=== PATIENT | female | born 1985 | race Two or more races ===

== ENCOUNTER 2018-12-23 14:40 | Inpatient (IN) | payer MEDICAID ==
[~2018-12-23] VITALS: Ht 170.2 cm; Wt 113.9 kg
[2018-12-23] MEDS ORDERED: NACL 0.9% 3 ML SYG IV SCH (15:30)
[2018-12-23 16:15] VITALS: BP 148/88; PULSE 102; RESP 20
[2018-12-23 16:16] VITALS: Ht 170.2 cm; Wt 113.9 kg
[2018-12-23] MEDS ORDERED: METF500T24 PO ×2 (16:20→16:22)
[2018-12-23] MEDS ORDERED: LABE200T25 PO (16:22)
[2018-12-23] MEDS ORDERED: ASPI-817 PO (16:22)
[2018-12-23] MEDS ORDERED: LEVEM (16:24)
[2018-12-23] MEDS ORDERED: HEPA500021 IJ (16:26)
[2018-12-23] MEDS ORDERED: DEXTROSE 50% 50 ML SYRINGE IV PRN ×2 (18:00)
[2018-12-23] MEDS ORDERED: GLUCOSE GEL 15 GRAM TUBE BUCCAL PRN (18:00)
[2018-12-23] MEDS ORDERED: GLUCOSE GEL 15 GRAM TUBE PO PRN ×2 (18:00)
[2018-12-23] MEDS ORDERED: GLUCAGON 1 MG INJ IM PRN (18:00)
[2018-12-23] MEDS ORDERED: FLUCONAZOLE 150 MG TAB GTB ONE (18:30)
[2018-12-23] MEDS ORDERED: INSULIN ASPART [NOVOLOG] 3 ML PEN SC SCH (19:05)
[2018-12-23] MEDS ORDERED: ACCU-CHEK XX SCH ×2 (20:05)
[2018-12-23] MEDS: ACCU-CHEK XX SCH (20:28)
[2018-12-23] MEDS: LABETALOL 200 MG TAB PO SCH (20:51)
[2018-12-23] MEDS: CLOTRIMAZOLE 1% 45 GM VAG CR VAG SCH (21:00)
[2018-12-23] MEDS ORDERED: CLOTRIMAZOLE 1% 45 GM VAG CR VAG SCH (21:00)
[2018-12-24] MEDS: ACCU-CHEK XX SCH ×4 (08:15→16:39)
[2018-12-24] MEDS: ASPIRIN (EC) 81 MG TAB PO SCH (09:58)
[2018-12-24] MEDS: LABETALOL 200 MG TAB PO SCH ×2 (09:59→21:20)
[2018-12-24] MEDS: FERROUS SULFATE (EC) 325 MG TAB PO SCH (10:00)
[2018-12-24] MEDS: PRENATAL VITAMIN PO SCH (10:00)
[2018-12-24] MEDS: INSULIN ASPART [NOVOLOG] 3 ML PEN SC SCH ×3 (10:09→20:34)
[2018-12-24] MEDS: NPH, HUMAN INSULIN ISOPHANE 3ML VIAL SC SCH (10:33)
[2018-12-24] MEDS ORDERED: DOCUSATE SODIUM 100 MG CAP PO PRN (11:30)
[2018-12-24] MEDS ORDERED: ACCU-CHEK XX ONE ×2 (12:30→14:00)
[2018-12-24] MEDS ORDERED: INSULIN ASPART [NOVOLOG] 3 ML PEN SC ONE (12:30)
[2018-12-24] MEDS ORDERED: INSULIN ASPART [NOVOLOG] 3 ML PEN SC SCH (17:35)
--- NOTE | 2018-12-24 18:37 | HP ---
Date/Time of Note Date/Time of Note DATE: 12/24/18 TIME: 18:33 OB - History Hx of Present Free Text/Dictation 33-year-old female 1 para 0 at 18 weeks gestation admitted for sugar control Patient is also hypertensive and diabetic for over 2 years Last Menstrual Period: Aug 16, 2018 Estimated Due Date: Dec 21, 2018 : 1 Para: 0 Care: None Ultrasounds: No ultrasounds Obstetrical Complications: Other (-Chronic hypertension and diabetes) Medical Complications: Other (Hypertension and diabetes) Past Family/Social History * Past Medical, Surgical, Family and Obstetric Histories reviewed from chart. OB Admission Exam Vital Signs Vital Signs Vital Signs Date Temp Pulse Resp B/P (MAP) Pulse Ox O2 O2 Flow FiO2 Time Delivery Rate 12/23/18 98.0 102 20 148/88 Room Air 16:15 (108) Physical Exam HEENT: WNL Heart: Rhythm Normal Lungs: Clear, Equal Abdomen: WNL Extremities: Normal Reflexes: Normal Cervical Dilatation: None Last 72 hourBlood Glucose Bedside Glucose - 72 Hours Test 12/23/18 15:32 12/23/18 20:28 12/23/18 22:10 12/24/18 08:42 Bedside 245 231 199 220 Glucose mg/dL (70-220) mg/dL (70-220) mg/dL (70-220) mg/dL (70-220) H H Test 12/24/18 12:08 12/24/18 14:09 12/24/18 16:38 12/24/18 17:55 Bedside 244 163 182 177 Glucose mg/dL (70-220) mg/dL (70-220) mg/dL (70-220) mg/dL (70-220) H Last 72 hours Lab Results CBC & BMP 12/23/18 16:55 Liver Function Test 12/23/18 16:55 Alanine Aminotransferase (ALT/SGPT) 21 Albumin 4.2 Alkaline Phosphatase 60 Aspartate Amino Transf (AST/SGOT) 16 Direct Bilirubin 0.00 Total Protein 7.8 Hemoglobin A1C Test 12/23/18 16:55 Hemoglobin A1c 7.9 H OB Assessment/Plan Other Assessment: IUP at 17-18 weeks [id number] diabetes Hypertension Other plan: Patient was admitted for diabetic control SHASHANK RATLIFF MD Dec 24, 2018 18:37
--- NOTE | 2018-12-24 18:38 | PN ---
Date/Time of Note Date/Time of Note DATE: 12/24/18 TIME: 18:37 OB Subjective Subjective Subjective Has no complaint OB Objective Objective Objective General physical exam is otherwise unchanged Blood pressure still slightly elevated Sugars very elevated on the care of the perinatology OB Assessment/Plan Other Assessment: Uncontrolled diabetes for 17 to 18 weeks of gestation Other plan: Continue with hospitalization for diabetic control SHASHANK RATLIFF MD Dec 24, 2018 18:38
[2018-12-24] MEDS ORDERED: NPH, HUMAN INSULIN ISOPHANE 3ML VIAL SC SCH (21:00)
[2018-12-24] MEDS: CLOTRIMAZOLE 1% 45 GM VAG CR VAG SCH (21:21)
[2018-12-25] MEDS: ACCU-CHEK XX SCH ×3 (08:24→14:49)
[2018-12-25] MEDS: PRENATAL VITAMIN PO SCH (08:36)
[2018-12-25] MEDS: ASPIRIN (EC) 81 MG TAB PO SCH (08:36)
[2018-12-25] MEDS: FERROUS SULFATE (EC) 325 MG TAB PO SCH (08:37)
[2018-12-25] MEDS: LABETALOL 200 MG TAB PO SCH ×2 (08:37→21:46)
[2018-12-25] MEDS: NPH, HUMAN INSULIN ISOPHANE 3ML VIAL SC SCH (08:43)
[2018-12-25] MEDS: INSULIN ASPART [NOVOLOG] 3 ML PEN SC SCH ×5 (08:43→21:01)
[2018-12-25] MEDS ORDERED: FLUCONAZOLE 150 MG TAB GTB ONE (09:00)
--- NOTE | 2018-12-25 17:08 | PN ---
Date/Time of Note Date/Time of Note DATE: 12/25/18 TIME: 17:07 OB Subjective Subjective Subjective Currently has no major complaints OB Objective Objective Objective Vital signs are stable in general physical exam is unchanged Blood sugars appear lower comparing to admission Currently under care of perinatology for sugar control OB Assessment/Plan Other Assessment: Class B diabetic [id number] 618 or 17+ weeks Other plan: Continue to follow perinatology orders for sugar control Patient has been visited by perinatologist SHASHANK RATLIFF MD Dec 25, 2018 17:08
[2018-12-25] MEDS ORDERED: NPH, HUMAN INSULIN ISOPHANE 3ML VIAL SC SCH (21:00)
[2018-12-25] MEDS: CLOTRIMAZOLE 1% 45 GM VAG CR VAG SCH (21:46)
[2018-12-26] MEDS: ACCU-CHEK XX SCH ×3 (07:30→14:44)
[2018-12-26] MEDS ORDERED: INSULIN ASPART [NOVOLOG] 3 ML PEN SC SCH (07:35)
[2018-12-26] MEDS: NPH, HUMAN INSULIN ISOPHANE 3ML VIAL SC SCH ×2 (08:29→21:22)
[2018-12-26] MEDS: FERROUS SULFATE (EC) 325 MG TAB PO SCH (08:30)
[2018-12-26] MEDS: PRENATAL VITAMIN PO SCH (08:30)
[2018-12-26] MEDS: ASPIRIN (EC) 81 MG TAB PO SCH (08:30)
[2018-12-26] MEDS: LABETALOL 200 MG TAB PO SCH ×2 (08:32→21:16)
--- NOTE | 2018-12-26 11:18 | PN ---
Date/Time of Note Date/Time of Note DATE: 12/26/18 TIME: 11:17 OB Subjective Subjective Subjective Currently has no medical complaints OB Objective Objective Objective General physical exam as well as vital signs are stable Blood sugars appears to be more stable in mid 100s OB Assessment/Plan Other Assessment: Class B diabetic has 18 weeks Other plan: Continue to adjust sugar with perinatologist Anticipate discharge next day SHASHANK RATLIFF MD Dec 26, 2018 11:18
[2018-12-26] MEDS: INSULIN ASPART [NOVOLOG] 3 ML PEN SC SCH ×3 (11:36→18:02)
[2018-12-26] MEDS: CLOTRIMAZOLE 1% 45 GM VAG CR VAG SCH (21:17)
[2018-12-27] MEDS: INSULIN ASPART [NOVOLOG] 3 ML PEN SC SCH ×6 (07:30→20:39)
[2018-12-27] MEDS: ACCU-CHEK XX SCH ×4 (07:47→20:32)
[2018-12-27] MEDS: PRENATAL VITAMIN PO SCH (08:17)
[2018-12-27] MEDS: ASPIRIN (EC) 81 MG TAB PO SCH (08:18)
[2018-12-27] MEDS: LABETALOL 200 MG TAB PO SCH ×2 (08:18→20:56)
[2018-12-27] MEDS: FERROUS SULFATE (EC) 325 MG TAB PO SCH (08:18)
[2018-12-27] MEDS: NPH, HUMAN INSULIN ISOPHANE 3ML VIAL SC SCH ×2 (08:21→21:01)
--- NOTE | 2018-12-27 12:16 | PN ---
Date/Time of Note Date/Time of Note DATE: 12/27/18 TIME: 12:14 OB Subjective Subjective Subjective Currently has no major complaints OB Objective Objective Objective Blood sugars are still elevated General physical exam is unchanged Patient under care of perinatologist for sugar control OB Assessment/Plan Other Assessment: Class B diabetes at 18 weeks Other plan: Continue to monitor blood sugars and adjust insulin dose SHASHANK RATLIFF MD Dec 27, 2018 12:16
[2018-12-27] MEDS: CLOTRIMAZOLE 1% 45 GM VAG CR VAG SCH (20:56)
[2018-12-28] MEDS: ACCU-CHEK XX SCH ×4 (07:30→20:44)
[2018-12-28] MEDS: NPH, HUMAN INSULIN ISOPHANE 3ML VIAL SC SCH (07:35)
[2018-12-28] MEDS: INSULIN ASPART [NOVOLOG] 3 ML PEN SC SCH ×5 (08:42→20:44)
[2018-12-28] MEDS: ASPIRIN (EC) 81 MG TAB PO SCH (09:03)
[2018-12-28] MEDS: FERROUS SULFATE (EC) 325 MG TAB PO SCH (09:03)
[2018-12-28] MEDS: LABETALOL 200 MG TAB PO SCH ×2 (09:03→21:07)
[2018-12-28] MEDS: PRENATAL VITAMIN PO SCH (09:04)
--- NOTE | 2018-12-28 14:31 | DS ---
Date/Time of Note Date/Time of Note DATE: 12/28/18 TIME: 14:30 Obstetrical Discharge Record Final Diagnosis Final Diagnosis: not delivered Other Final Diagnosis Class B diabetes [id number] Complications Gestational Diabetes (Class B diabetes) Condition on Discharge Physical Assessment Voiding: Yes Bowel Movement: Yes Breast: Soft, non-tender, Filling Fundus: Other () Abdomen and Incision: Abdomen is soft fundal height is about 2.-3 fingerbreadth below bellybutton heart tones positive Calf Tenderness: No Patient Condition: Good (Patient appears to have reasonable sugar control impaired perinatologists will DC patient home with follow-up in perinatology clinic within 1 week) SHASHANK RATLIFF MD Dec 28, 2018 14:31
--- NOTE | 2018-12-28 14:33 | PD.PPDC ---
[employer] Discharge Instruction Provider Information Physician Information 33-year-old female with 2-year history of diabetes admitted for sugar control at 18 weeks Diagnosis [id number] Final Diagnosis: Abhay1p Class B diabetes Condition [id number] Patient Condition: [id number] Good (Patient appears to have reasonable sugar control impaired perinatologists will DC patient home with follow-up in perinatology clinic within 1 week) Diet [id number] Diet: [id number] Special Diet Special Diet: 1800-calorie ADA Activity/Restrictions [id number] Activity: [id number] Normal Activity May Shower Follow-up Follow-up with Physician: 3, Day/Days (In clinic) SHASHANK RATLIFF MD Dec 28, 2018 14:33
[2018-12-28] MEDS ORDERED: LABE200T25 PO (14:35)
[2018-12-28] MEDS ORDERED: ASPI-817 PO (14:35)
--- NOTE | 2018-12-28 14:47 | DS ---
Date/Time of Note Date/Time of Note DATE: 12/28/18 TIME: 14:46 Discharge Summary Admission/Discharge Info Admit Date/Time Dec 23, 2018 at 14:40 Discharge Date/Time April 29, 2019 Discharge Diagnosis Class B diabetes Patient Condition: Good Consults Perinatology Hx of Present Illness 33-year-old female the 18 weeks gestation admitted for blood pressure control and sugar control Hospital Course Uncomplicated Home Meds Active Scripts Aspirin* (Aspirin* EC) 81 Mg Tablet.dr, 81 MG PO DAILY, #120 TAB 1 Refill Prov:SHASHANK RATLIFF MD 12/28/18 Labetalol Hcl* (Labetalol Hcl*) 200 Mg Tablet, 200 MG PO BID, #120 TAB 1 Refill Prov:SHASHANK RATLIFF MD 12/28/18 Reported Medications Insulin Detemir (Levemir) 100 Unit/1 Ml Vial 12/23/18 Discontinued Reported Medications Heparin Sodium,Porcine/Pf (HEPARIN SOD 5,000 UNIT/ 0.5 ML) 5,000 Unit/0.5 Ml Vial, 5000 UNIT IJ DAILY, VIAL 12/23/18 Metformin Hcl* (Metformin Hcl*) 500 Mg Tablet, 500 MG PO WITH MEALS, #90 TAB 12/23/18 Metformin Hcl* (Metformin Hcl*) 500 Mg Tablet, 500 MG PO WITH BREAKFAST, #30 TAB 12/23/18 Follow-up Plan 3 days in clinic following Friday for perinatology follow-up Primary Care Provider Care Physician No Primary Time spent on discharge: > 30 minutes Pending Labs Laboratory Tests Test 12/27/18 14:59 12/27/18 17:17 12/27/18 20:32 12/28/18 08:38 Bedside 128 141 135 175 Glucose mg/dL (70-220) mg/dL (70-220) mg/dL (70-220) mg/dL (70-220) Test 12/28/18 11:03 Bedside 119 Glucose mg/dL (70-220) SHASHANK RATLIFF MD Dec 28, 2018 14:47
[2018-12-28] MEDS ORDERED: NPH, HUMAN INSULIN ISOPHANE 3ML VIAL SC SCH (21:00)
[2018-12-28] MEDS: CLOTRIMAZOLE 1% 45 GM VAG CR VAG SCH (21:07)
[2018-12-29] MEDS: ACCU-CHEK XX SCH ×2 (08:05→11:30)
[2018-12-29] MEDS: FERROUS SULFATE (EC) 325 MG TAB PO SCH (09:05)
[2018-12-29] MEDS: ASPIRIN (EC) 81 MG TAB PO SCH (09:05)
[2018-12-29] MEDS: PRENATAL VITAMIN PO SCH (09:06)
[2018-12-29] MEDS: LABETALOL 200 MG TAB PO SCH (09:06)
[2018-12-29] MEDS: NPH, HUMAN INSULIN ISOPHANE 3ML VIAL SC SCH (09:11)
[2018-12-29] MEDS: INSULIN ASPART [NOVOLOG] 3 ML PEN SC SCH ×2 (09:12→11:40)
== END 2018-12-29 14:31 | disposition home or self-care (01) | DRG 832 ==
LOC: PP1 14:40
PROVIDERS: ADMIT Obstetrics & Gynecology; ATTEND Obstetrics & Gynecology
DX: O24.112 Pre-existing type 2 diabetes mellitus, in pregnancy, second trimester (principal); O10.912 Unspecified pre-existing hypertension complicating pregnancy, second trimester; E11.9 Type 2 diabetes mellitus without complications; Z3A.18 18 weeks gestation of pregnancy
CPT/HCPCS: 76805; 80053; 81001; 81003; 82575; 82962; 83036; 84156; 85025; 87086; J1815

== ENCOUNTER 2019-03-08 14:05 | Outpatient (CLI) | payer MEDICAID ==
[~2019-03-08] VITALS: Ht 167.6 cm; Wt 122.0 kg
[~2019-03-08 14:05] MED LIST: ASPI-817 PO; LABE200T25 PO; LEVEM
[2019-03-08 14:15] VITALS: Ht 167.6 cm; Wt 122.0 kg
[2019-03-08 14:16] VITALS: BP 125/82; PULSE 95; RESP 20
--- NOTE | 2019-03-08 15:26 | PN ---
Triage Information Date/Time March 08, 2019 Reason for visit: DFM Weeks of Gestation 29 weeks and 1 day /Para 1 para 0 Diabetes: pre-gestational (Class B diabetes) Diabetes management: diet controlled, insulin controlled Hypertention: essential (On labetalol) Objective Vital Signs Date Temp Pulse Resp B/P (MAP) Pulse Ox O2 O2 Flow FiO2 Time Delivery Rate 03/08/19 98.6 95 20 125/82 95 Room Air 14:16 (96) Heart Rate: 140's Heart Rate Comments Reactive Contractions: None Results/Medications Imaging Results Cervix is closed and measures 3.4 cm in length. Biophysical profile = 04/08. RICHIE = 13.1 cm. Disposition: Discharge Assessment/Plan Home with follow-up in clinic mornings SHASHANK RATLIFF MD Mar 08, 2019 15:26
--- NOTE | 2019-03-08 15:50 | TRIAGE ---
OB Triage Datetime Report Generated by CPN: 03/08/2019 15:49 Datetime: 03/08/2019 15:29 Stage of : OB Triage Maternal Assessment Level of Consciousness: Keenly Alert, Responsive DTR's/Clonus: DTRs 1+ Headache: Denies Nausea/Vomiting: Denies RUQ Epigastric Pain: Denies Labor Evaluation Frequency: NONE Monitor Mode: External Resting Tone [place]: Relaxed Heart Rate FHR Baseline Rate: 140 Monitor Mode: External US Variability: Moderate 6-25 bpm Accelerations: 15X15 Decelerations: None Category: Category I Pain Assessment Pain Scale: 0 Pain Presence: None/Denies Pain Type: N/A Pain Goal: 3 Vaginal Exam Membrane Status: Intact Datetime: 03/08/2019 14:42 Maternal Assessment Level of Consciousness: Keenly Alert, Responsive DTR's/Clonus: DTRs 1+ Headache: Denies Blurred Vision: No Nausea/Vomiting: Denies RUQ Epigastric Pain: Denies Facial Edema: None Monitor Mode: External Resting Tone [place]: Relaxed Heart Rate FHR Baseline Rate: 140 Monitor Mode: External US Variability: Moderate 6-25 bpm Accelerations: 15X15 Decelerations: None Category: Category I Pain Assessment Pain Scale: 0 Pain Presence: None/Denies Pain Type: N/A Pain Goal: 3 Vaginal Exam Membrane Status: Intact Datetime: 03/08/2019 14:41 EGA: 29.1 Datetime: 03/08/2019 14:34 EGA: 29.1 Datetime: 03/08/2019 14:32 EGA: 29.1 Datetime: 03/08/2019 14:27 Stage of : OB Triage Datetime: 03/08/2019 14:21 Time of Arrival: 03/08/2019 13:55 EGA: 29.1 Arrived From: Home Chief Complaint: Decreased movement since yesterday Movement: Decreased Contractions: Denies/Absent Rupture of Membranes: Denies Vaginal Bleeding: None Vaginal Discharge: Denies Recent Sexual Intercouse: Denies Abdominal Trauma: Not Applicable Patient Complaints: None Additional Patient Complaints: hx of diabetis, currently on insulin and BP meds. Time Provider Notified: 03/08/2019 14:28 Provider Notified: Dr. Callahan Initial Plan: NST, BPP, Biophysical, cervical length Datetime: 12/29/2018 14:17 Stage of : Antepartum Datetime: 12/29/2018 14:13 Time of Arrival: 03/08/2019 13:55 EGA: 29.1 Arrived By: Ambulatory Arrived From: Home Chief Complaint: devreased movement since yesterday Movement: Decreased Contractions: Denies/Absent Rupture of Membranes: Denies Vaginal Bleeding: None Vaginal Discharge: Denies Recent Sexual Intercouse: Denies Abdominal Trauma: Not Applicable Patient Complaints: None Datetime: 12/29/2018 11:53 Stage of : Antepartum Temperature Route: Oral Pain Assessment Pain Scale: 0 Pain Presence: None/Denies Pain Type: N/A Datetime: 12/29/2018 11:30 Stage of : Antepartum Bedside Blood Glucose: 142 (Annotations: 2 hour post prandial) Datetime: 12/29/2018 11:00 Stage of : Antepartum Datetime: 12/29/2018 10:50 Stage of : Antepartum Datetime: 12/29/2018 09:15 Stage of : Antepartum Datetime: 12/29/2018 08:19 Stage of : Antepartum Datetime: 12/29/2018 08:01 Stage of : Antepartum Bedside Blood Glucose: 134 (Annotations: FBS) Datetime: 12/29/2018 07:39 Assessment Type: Ongoing Assessment DTR's/Clonus: DTRs 2+; No Clonus Headache: Denies Blurred Vision: No Respiratory Effort: Unlabored; Regular Rhythm; Equal Expansion Breath Sounds, Left: Clear and Equal Breath Sounds, Right: Clear and Equal Nausea/Vomiting: Denies RUQ Epigastric Pain: Denies Lower Extremities Edema: None Degree: 1+ Upper Extremities Edema: None Facial Edema: None Fall Risk Assessment History of Falling: (0) No Secondary Diagnosis: (0) No Ambulatory Aid: (0) Bedrest/Nurse Assist IV Therapy: (0) No Gait: (0) Normal/Bedrest/Immobile Mental Status: (0) Oriented to Own Ability Fall Score: 0 Fall Risk Score Definition: No Risk: No action required Datetime: 12/29/2018 07:34 Heart Rate FHR Baseline Rate: 145 Monitor Mode: Doppler Pain Assessment Pain Scale: 0 Pain Presence: None/Denies Pain Type: N/A Datetime: 12/29/2018 07:33 Stage of : Antepartum Temperature Route: Oral Datetime: 12/29/2018 06:50 Stage of : Antepartum Pain Presence: None/Denies Pain Type: N/A Pain Assessment Comments: PT SLEEPING BUT EASILY AROUSED. Datetime: 12/29/2018 05:37 Stage of : Antepartum Temperature Route: Oral Contraction Comments: PT DENIES CRAMPING Comments: PT STATES SHE FEELS A LITTLE MOVEMENT Pain Presence: None/Denies Pain Type: N/A Vaginal Exam Membrane Status: Intact Vaginal Bleeding: None Datetime: 12/29/2018 03:00 Stage of : Antepartum Pain Presence: None/Denies Pain Type: N/A Pain Assessment Comments: PT SLEEPING WITH EVEN UNLABORED BREATHING Datetime: 12/29/2018 01:15 Stage of : Antepartum Pain Presence: None/Denies Pain Type: N/A Pain Assessment Comments: PT SLEEPING WITH EVEN UNLABORED BREATHING. Datetime: 12/29/2018 00:23 Stage of : Antepartum Temperature Route: Oral Pain Presence: None/Denies Pain Type: N/A Pain Assessment Comments: PT SLEEPING BUT EASILY AROUSED Datetime: 12/28/2018 21:15 Stage of : Antepartum Datetime: 12/28/2018 21:10 Stage of : Antepartum Datetime: 12/28/2018 21:07 Stage of : Antepartum Datetime: 12/28/2018 21:04 Stage of : Antepartum Datetime: 12/28/2018 20:44 Stage of : Antepartum Bedside Blood Glucose: 104 Heart Rate FHR Baseline Rate: 144 Monitor Mode: Doppler Datetime: 12/28/2018 20:00 Stage of : Antepartum Datetime: 12/28/2018 19:55 Stage of : Antepartum Datetime: 12/28/2018 19:50 Stage of : Antepartum Datetime: 12/28/2018 19:45 Stage of : Antepartum Datetime: 12/28/2018 19:40 Stage of : Antepartum Datetime: 12/28/2018 19:35 Stage of : Antepartum Datetime: 12/28/2018 19:30 Stage of : Antepartum Datetime: 12/28/2018 19:19 Stage of : Antepartum Temperature Route: Oral Contraction Comments: PT DENIES CRAMPING Comments: PT DOES NOT FEEL THE BABY MOVE AT THIS TIME. Datetime: 12/28/2018 18:00 Stage of : [facility] CALLED TO CHECK ELIGIBILITY OF RESTRICTED MEDICAL FOR INSULIN S,FAXED PRESCRIPTIONS Datetime: 12/28/2018 16:17 Stage of : Antepartum Temperature Route: Oral Pain Assessment Pain Scale: 0 Pain Presence: None/Denies Pain Goal: 0 Datetime: 12/28/2018 14:39 Monitor Mode: Doppler (Annotations: 140 BPM) Datetime: 12/28/2018 13:02 Stage of : Antepartum Temperature Route: Oral Pain Assessment Pain Scale: 0 Pain Presence: None/Denies Pain Goal: 0 Datetime: 12/28/2018 07:44 Monitor Mode: 140 STRONG AND REGULAR Datetime: 12/28/2018 07:43 Temperature Route: Oral Pain Assessment Pain Scale: 0 Pain Presence: None/Denies Pain Goal: 0 Datetime: 12/28/2018 07:39 Assessment Type: Ongoing Assessment Maternal Assessment Level of Consciousness: Fully Conscious DTR's/Clonus: DTRs 2+; No Clonus Headache: Denies Blurred Vision: No Respiratory Effort: Unlabored; Regular Rhythm; Equal Expansion Breath Sounds, Left: Clear and Equal Breath Sounds, Right: Clear and Equal Nausea/Vomiting: Denies RUQ Epigastric Pain: Denies Lower Extremities Edema: None Degree: 1+ Upper Extremities Edema: None Facial Edema: None Fall Risk Assessment History of Falling: (0) No Secondary Diagnosis: (0) No Ambulatory Aid: (0) Bedrest/Nurse Assist IV Therapy: (0) No Gait: (0) Normal/Bedrest/Immobile Mental Status: (0) Oriented to Own Ability Fall Score: 0 Fall Risk Score Definition: No Risk: No action required Datetime: 12/28/2018 06:20 Stage of : Antepartum Datetime: 12/28/2018 04:38 Stage of : Antepartum Temperature Route: Oral Pain Presence: None/Denies Pain Type: N/A Pain Assessment Comments: PT DENIES ANY NEEDS AT THIS TIME Datetime: 12/28/2018 02:00 Stage of : Antepartum Pain Presence: None/Denies Pain Type: N/A Pain Assessment Comments: PT SLEEPING WITH EVEN UNLABORED BREATHING Datetime: 12/27/2018 23:57 Stage of : Antepartum Contraction Comments: PT DENIES CRAMPING Comments: PT STATES SHE FEELS OCCASSIONAL FM Pain Presence: None/Denies Pain Type: N/A Datetime: 12/27/2018 22:30 Stage of : Antepartum Datetime: 12/27/2018 22:00 Stage of : Antepartum Datetime: 12/27/2018 21:01 Stage of : Antepartum Datetime: 12/27/2018 20:56 Stage of : Antepartum Heart Rate FHR Baseline Rate: 144 Monitor Mode: Doppler Datetime: 12/27/2018 20:55 Stage of : Antepartum Datetime: 12/27/2018 20:39 Stage of : Antepartum Datetime: 12/27/2018 20:32 Stage of : Antepartum Bedside Blood Glucose: 135 Datetime: 12/27/2018 19:30 Stage of : Antepartum Datetime: 12/27/2018 19:10 Stage of : Antepartum Temperature Route: Oral Contraction Comments: PT DENIES CRAMPIG Comments: PT STATES OCCASSIONIAL FM Pain Presence: None/Denies Pain Type: N/A Vaginal Exam Membrane Status: Intact Vaginal Bleeding: None Datetime: 12/27/2018 18:12 Maternal Assessment Level of Consciousness: Fully Conscious Headache: Denies Blurred Vision: No Respiratory Effort: Unlabored Nausea/Vomiting: Denies RUQ Epigastric Pain: Denies Pain Presence: None/Denies Datetime: 12/27/2018 17:05 Stage of : Antepartum Maternal Assessment Level of Consciousness: Fully Conscious Headache: Denies Blurred Vision: No Respiratory Effort: Unlabored Nausea/Vomiting: Denies RUQ Epigastric Pain: Denies Temperature Route: Oral Pain Presence: None/Denies Datetime: 12/27/2018 15:06 Monitor Mode: External US Comments: viable fht's 150's ega 18.4 today Datetime: 12/27/2018 13:41 Respiratory Effort: Unlabored Resting Tone [place]: Relaxed Pain Presence: None/Denies Datetime: 12/27/2018 13:10 Stage of : Antepartum Datetime: 12/27/2018 11:54 Stage of : Antepartum Maternal Assessment Level of Consciousness: Fully Conscious Headache: Denies Blurred Vision: No Respiratory Effort: Unlabored Nausea/Vomiting: Denies RUQ Epigastric Pain: Denies Pain Presence: None/Denies Datetime: 12/27/2018 10:19 Maternal Assessment Level of Consciousness: Fully Conscious Headache: Denies Blurred Vision: No Respiratory Effort: Unlabored Nausea/Vomiting: Denies Bedside Blood Glucose: 196 Pain Presence: None/Denies Datetime: 12/27/2018 10:00 Stage of : Antepartum Maternal Assessment Level of Consciousness: Fully Conscious Headache: Denies Nausea/Vomiting: Denies Pain Presence: None/Denies Datetime: 12/27/2018 09:00 Maternal Assessment Level of Consciousness: Fully Conscious Headache: Denies Blurred Vision: No Respiratory Effort: Unlabored Nausea/Vomiting: Denies Pain Presence: None/Denies Datetime: 12/27/2018 07:35 Assessment Type: Ongoing Assessment Maternal Assessment Level of Consciousness: Fully Conscious DTR's/Clonus: DTRs 2+; No Clonus Headache: Denies Blurred Vision: No Respiratory Effort: Unlabored; Regular Rhythm; Equal Expansion Breath Sounds, Left: Clear and Equal Breath Sounds, Right: Clear and Equal Nausea/Vomiting: Denies RUQ Epigastric Pain: Denies Lower Extremities Edema: None Degree: None Upper Extremities Edema: None Degree: None Facial Edema: None Fall Risk Assessment History of Falling: (0) No Secondary Diagnosis: (0) No Ambulatory Aid: (0) Bedrest/Nurse Assist IV Therapy: (0) No Gait: (0) Normal/Bedrest/Immobile Mental Status: (0) Oriented to Own Ability Fall Score: 0 Fall Risk Score Definition: No Risk: No action required Datetime: 12/27/2018 07:21 Stage of : Antepartum Maternal Assessment Level of Consciousness: Fully Conscious Headache: Denies Nausea/Vomiting: Denies RUQ Epigastric Pain: Denies Temperature Route: Oral Resting Tone [place]: Relaxed Contraction Comments: pt. denies any uc's or cramping Comments: ega 18.4 today Pain Assessment Pain Scale: 0 Pain Presence: None/Denies Vaginal Bleeding: None Datetime: 12/27/2018 07:05 Stage of : Antepartum Maternal Assessment Level of Consciousness: Fully Conscious Headache: Denies Blurred Vision: No Respiratory Effort: Unlabored Nausea/Vomiting: Denies Pain Presence: None/Denies Datetime: 12/26/2018 21:30 Heart Rate FHR Baseline Rate: 155 Monitor Mode: Doppler Datetime: 12/26/2018 21:14 Assessment Type: Ongoing Assessment Maternal Assessment Level of Consciousness: Fully Conscious Headache: Denies Blurred Vision: No Respiratory Effort: Unlabored; Regular Rhythm; Equal Expansion Nausea/Vomiting: Denies RUQ Epigastric Pain: Denies Lower Extremities Edema: None Degree: None Upper Extremities Edema: None Degree: None Facial Edema: None Fall Risk Assessment History of Falling: (0) No Secondary Diagnosis: (0) No Ambulatory Aid: (0) Bedrest/Nurse Assist IV Therapy: (0) No Gait: (0) Normal/Bedrest/Immobile Mental Status: (0) Oriented to Own Ability Fall Score: 0 Fall Risk Score Definition: No Risk: No action required Pain Presence: None/Denies Datetime: 12/26/2018 18:05 Maternal Assessment Level of Consciousness: Fully Conscious Headache: Denies Blurred Vision: No Respiratory Effort: Unlabored Nausea/Vomiting: Denies RUQ Epigastric Pain: Denies Pain Presence: None/Denies Datetime: 12/26/2018 17:37 Bedside Blood Glucose: 113 Pain Presence: None/Denies Datetime: 12/26/2018 15:32 Stage of : Antepartum Temperature Route: Oral Datetime: 12/26/2018 15:10 Stage of : Antepartum Maternal Assessment Level of Consciousness: Fully Conscious Headache: Denies Nausea/Vomiting: Denies RUQ Epigastric Pain: Denies Pain Presence: None/Denies Vaginal Bleeding: None Datetime: 12/26/2018 14:36 Bedside Blood Glucose: 123 Datetime: 12/26/2018 14:19 Stage of : Antepartum Maternal Assessment Level of Consciousness: Fully Conscious Headache: Denies Nausea/Vomiting: Denies RUQ Epigastric Pain: Denies Pain Presence: None/Denies Vaginal Bleeding: None Datetime: 12/26/2018 13:16 Stage of : Antepartum Maternal Assessment Level of Consciousness: Fully Conscious Headache: Denies Nausea/Vomiting: Denies RUQ Epigastric Pain: Denies Pain Presence: None/Denies Vaginal Bleeding: None Datetime: 12/26/2018 11:59 Stage of : Antepartum Comments: viable fht's 150's Datetime: 12/26/2018 11:35 Maternal Assessment Level of Consciousness: Fully Conscious Headache: Denies Blurred Vision: No Respiratory Effort: Unlabored Nausea/Vomiting: Denies RUQ Epigastric Pain: Denies Bedside Blood Glucose: 161 Pain Presence: None/Denies Datetime: 12/26/2018 09:20 Stage of : Antepartum Maternal Assessment Level of Consciousness: Fully Conscious Headache: Denies Blurred Vision: No Respiratory Effort: Unlabored Nausea/Vomiting: Denies RUQ Epigastric Pain: Denies Pain Presence: None/Denies Datetime: 12/26/2018 08:32 Pain Presence: None/Denies Datetime: 12/26/2018 08:01 Stage of : Antepartum Maternal Assessment Level of Consciousness: Fully Conscious Headache: Denies Blurred Vision: No Respiratory Effort: Unlabored Nausea/Vomiting: Denies RUQ Epigastric Pain: Denies Temperature Route: Oral Bedside Blood Glucose: 167 Pain Presence: None/Denies Datetime: 12/26/2018 07:04 Maternal Assessment Level of Consciousness: Fully Conscious Headache: Denies Blurred Vision: No Respiratory Effort: Unlabored Nausea/Vomiting: Denies RUQ Epigastric Pain: Denies Comments: ega 18.4 Pain Presence: None/Denies Datetime: 12/25/2018 20:25 Heart Rate FHR Baseline Rate: 150 Monitor Mode: Doppler Datetime: 12/25/2018 20:20 Assessment Type: Ongoing Assessment Maternal Assessment Level of Consciousness: Fully Conscious Maternal Assessment Level of Consciousness: Fully Conscious Headache: Denies Headache: Denies Blurred Vision: No Blurred Vision: No Respiratory Effort: Unlabored; Regular Rhythm; Equal Expansion Nausea/Vomiting: Denies Nausea/Vomiting: Denies RUQ Epigastric Pain: Denies RUQ Epigastric Pain: Denies Lower Extremities Edema: None Degree: None Upper Extremities Edema: None Degree: None Facial Edema: None Fall Risk Assessment History of Falling: (0) No Secondary Diagnosis: (0) No Ambulatory Aid: (0) Bedrest/Nurse Assist IV Therapy: (0) No Gait: (0) Normal/Bedrest/Immobile Mental Status: (0) Oriented to Own Ability Fall Score: 0 Fall Risk Score Definition: No Risk: No action required Pain Presence: None/Denies Vaginal Exam Membrane Status: Intact Datetime: 12/25/2018 18:10 Bedside Blood Glucose: 114 Datetime: 12/25/2018 12:30 Bedside Blood Glucose: 185 Datetime: 12/25/2018 11:17 Pain Assessment Pain Scale: 0 Pain Presence: None/Denies Pain Type: N/A Datetime: 12/25/2018 11:05 Bedside Blood Glucose: 238 Datetime: 12/25/2018 08:50 Contraction Comments: DENIES FEELING ANY UCS Comments: fht's 152-158 via doppler Datetime: 12/25/2018 08:24 Bedside Blood Glucose: 201 Datetime: 12/25/2018 07:30 Assessment Type: Ongoing Assessment Maternal Assessment Level of Consciousness: Fully Conscious DTR's/Clonus: DTRs 2+; No Clonus Headache: Denies Blurred Vision: No Respiratory Effort: Unlabored; Regular Rhythm; Equal Expansion Breath Sounds, Left: Clear and Equal Breath Sounds, Right: Clear and Equal Nausea/Vomiting: Denies RUQ Epigastric Pain: Denies Lower Extremities Edema: None Degree: None Upper Extremities Edema: None Degree: None Facial Edema: None Fall Risk Assessment History of Falling: (0) No Secondary Diagnosis: (0) No Ambulatory Aid: (0) Bedrest/Nurse Assist IV Therapy: (0) No Gait: (0) Normal/Bedrest/Immobile Mental Status: (0) Oriented to Own Ability Fall Score: 0 Fall Risk Score Definition: No Risk: No action required Datetime: 12/25/2018 07:26 Pain Assessment Pain Scale: 0 Pain Presence: None/Denies Pain Type: N/A Datetime: 12/25/2018 06:10 Stage of : Antepartum Contraction Comments: PT DENIES CRAMPING Comments: PT STATES + FM Pain Presence: None/Denies Pain Type: N/A Vaginal Exam Membrane Status: Intact Vaginal Bleeding: None Datetime: 12/25/2018 04:45 Stage of : Antepartum Pain Presence: None/Denies Pain Type: N/A Pain Assessment Comments: PT SLEEPING WITH EVEN UNLABORED BREATHING. Datetime: 12/25/2018 03:40 Stage of : Antepartum Temperature Route: Oral Contraction Comments: PT DENIES CRAMPING. Comments: PT STATES +FM Pain Presence: None/Denies Pain Type: N/A Datetime: 12/24/2018 23:39 Stage of : Antepartum Temperature Route: Oral Contraction Comments: PT DENIES CRAMPING Comments: PT STATES + FM Pain Presence: None/Denies Pain Type: N/A Pain Assessment Comments: PT GOING TO SLEEP NOW. Datetime: 12/24/2018 23:05 Stage of : Antepartum Datetime: 12/24/2018 21:30 Stage of : Antepartum Datetime: 12/24/2018 21:24 Stage of : Antepartum Bedside Blood Glucose: 125 Datetime: 12/24/2018 21:21 Stage of : Antepartum Datetime: 12/24/2018 21:20 Stage of : Antepartum Datetime: 12/24/2018 21:19 Stage of : Antepartum Datetime: 12/24/2018 21:01 Stage of : Antepartum Bedside Blood Glucose: 151 (Annotations: 2 HR PP) Datetime: 12/24/2018 20:34 Stage of : Antepartum Datetime: 12/24/2018 20:17 Stage of : Antepartum Assessment Type: Ongoing Assessment Maternal Assessment Level of Consciousness: Fully Conscious DTR's/Clonus: DTRs 2+; No Clonus Headache: Denies Blurred Vision: No Respiratory Effort: Unlabored; Regular Rhythm; Equal Expansion Breath Sounds, Left: Clear and Equal Breath Sounds, Right: Clear and Equal Nausea/Vomiting: Denies RUQ Epigastric Pain: Denies Lower Extremities Edema: None Degree: None Upper Extremities Edema: None Degree: None Facial Edema: None Temperature Route: Oral Fall Risk Assessment History of Falling: (0) No Secondary Diagnosis: (0) No Ambulatory Aid: (0) Bedrest/Nurse Assist IV Therapy: (0) No Gait: (0) Normal/Bedrest/Immobile Mental Status: (0) Oriented to Own Ability Fall Score: 0 Fall Risk Score Definition: No Risk: No action required Contraction Comments: PT DENIES CRAMPING Heart Rate FHR Baseline Rate: 152 Monitor Mode: Doppler Pain Presence: None/Denies Pain Type: N/A Vaginal Exam Membrane Status: Intact Vaginal Bleeding: None Datetime: 12/24/2018 17:58 Bedside Blood Glucose: 177 Datetime: 12/24/2018 16:46 Bedside Blood Glucose: 182 Datetime: 12/24/2018 15:18 Heart Rate FHR Baseline Rate: 150 Comments: doppler Datetime: 12/24/2018 15:05 Pain Presence: None/Denies Datetime: 12/24/2018 14:08 Bedside Blood Glucose: 163 Datetime: 12/24/2018 12:09 Bedside Blood Glucose: 244 Datetime: 12/24/2018 08:42 Bedside Blood Glucose: 220 Datetime: 12/24/2018 07:30 Assessment Type: Ongoing Assessment Maternal Assessment Level of Consciousness: Fully Conscious DTR's/Clonus: DTRs 2+; No Clonus Headache: Denies Blurred Vision: No Respiratory Effort: Unlabored; Regular Rhythm; Equal Expansion Breath Sounds, Left: Clear and Equal Breath Sounds, Right: Clear and Equal Nausea/Vomiting: Denies RUQ Epigastric Pain: Denies Facial Edema: None Fall Risk Assessment History of Falling: (0) No Secondary Diagnosis: (0) No Ambulatory Aid: (0) Bedrest/Nurse Assist IV Therapy: (0) No Gait: (0) Normal/Bedrest/Immobile Mental Status: (0) Oriented to Own Ability Fall Score: 0 Fall Risk Score Definition: No Risk: No action required Datetime: 12/24/2018 07:29 Maternal Assessment Level of Consciousness: Fully Conscious DTR's/Clonus: DTRs 2+ Headache: Denies Blurred Vision: No Nausea/Vomiting: Denies RUQ Epigastric Pain: Denies Facial Edema: None Datetime: 12/24/2018 06:30 Stage of : Antepartum Datetime: 12/24/2018 04:00 Stage of : Antepartum Datetime: 12/24/2018 02:35 Stage of : Antepartum Datetime: 12/24/2018 00:30 Stage of : Antepartum Datetime: 12/23/2018 22:10 Bedside Blood Glucose: 199 Datetime: 12/23/2018 21:30 Stage of : Antepartum Monitor Mode: Doppler Comments: FHR: 145-150. Datetime: 12/23/2018 20:39 Stage of : Antepartum Datetime: 12/23/2018 20:28 Stage of : Antepartum Bedside Blood Glucose: 231 Datetime: 12/23/2018 20:21 Stage of : Antepartum Datetime: 12/23/2018 19:34 Heart Rate FHR Baseline Rate: 150 Comments: with doppler Datetime: 12/23/2018 19:19 Stage of : Antepartum Assessment Type: Ongoing Assessment Maternal Assessment Level of Consciousness: Fully Conscious DTR's/Clonus: DTRs 2+; No Clonus Headache: Denies Blurred Vision: No Respiratory Effort: Unlabored; Regular Rhythm; Equal Expansion Breath Sounds, Left: Clear and Equal Breath Sounds, Right: Clear and Equal Nausea/Vomiting: Denies RUQ Epigastric Pain: Denies Facial Edema: None Temperature Route: Oral Fall Risk Assessment History of Falling: (0) No Secondary Diagnosis: (0) No Ambulatory Aid: (0) Bedrest/Nurse Assist IV Therapy: (0) No Gait: (0) Normal/Bedrest/Immobile Mental Status: (0) Oriented to Own Ability Fall Score: 0 Fall Risk Score Definition: No Risk: No action required Datetime: 12/23/2018 15:44 Assessment Type: Admission Assessment Vaginal Bleeding: None Maternal Assessment Level of Consciousness: Fully Conscious DTR's/Clonus: DTRs 2+; No Clonus Headache: Denies Blurred Vision: No Respiratory Effort: Unlabored; Regular Rhythm; Equal Expansion Breath Sounds, Left: Clear and Equal Breath Sounds, Right: Clear and Equal Nausea/Vomiting: Denies RUQ Epigastric Pain: Denies Facial Edema: None Fall Risk Assessment History of Falling: (0) No Secondary Diagnosis: (0) No Ambulatory Aid: (0) Bedrest/Nurse Assist IV Therapy: (0) No Gait: (0) Normal/Bedrest/Immobile Mental Status: (0) Oriented to Own Ability Fall Score: 0 Fall Risk Score Definition: No Risk: No action required Datetime: 12/23/2018 15:42 Arrived By: Ambulatory; Direct Admit Arrived From: Dr. Office Datetime: 12/23/2018 15:34 Bedside Blood Glucose: 245 Datetime: 12/23/2018 15:33 Stage of : Antepartum
== END 2019-03-08 15:40 | disposition home or self-care (01) ==
LOC: L-D 14:05 → OBT 14:05
PROVIDERS: ATTEND Obstetrics & Gynecology
DX: O36.8130 Decreased fetal movements, third trimester, not applicable or unspecified (principal); O24.414 Gestational diabetes mellitus in pregnancy, insulin controlled; O16.3 Unspecified maternal hypertension, third trimester; O09.513 Supervision of elderly primigravida, third trimester; Z3A.29 29 weeks gestation of pregnancy
CPT/HCPCS: 76817; 76818; Z7500; G0463

== ENCOUNTER 2019-04-13 15:22 | Outpatient (CLI) | payer MEDICAID, OTHER ==
[~2019-04-13] VITALS: Ht 162.6 cm; Wt 126.6 kg
[~2019-04-13 15:22] MED LIST changes: +INSU100C SQ; +NPH,100I5 SQ
[2019-04-13 15:45] VITALS: Ht 162.6 cm; Wt 126.6 kg
[2019-04-13] MEDS ORDERED: LACTATED RINGER'S 1,000 ML IV ONE (17:00)
[2019-04-13] MEDS ORDERED: TERBUTALINE 1 MG/ML INJ SC ONE (17:00)
--- NOTE | 2019-04-13 17:24 | PN ---
Triage Information Date/Time April 13, 2019 Reason for visit: Patient was sent in for antepartum testing unit for "nonreactive" heart tracings Weeks of Gestation 34+ weeks /Para With a 1 para 0 Diabetes: pre-gestational Hypertention: essential Objective Heart Rate: 150's Heart Rate Comments Reactive Contractions: < 5 Minutes Apart Exam Patient was examined and appeared to be long and closed Results/Medications Medications Current Medications Lactated Ringer's 1,000 ml @ 1,000 mls/hr Q1H ONCE IV Last administered on 04/13/19at 17:04; Admin Dose 1,000 MLS/HR; Start 04/13/19 at 17:00; Stop 04/13/19 at 17:59 Imaging Results Normal RICHIE in antepartum testing unit Disposition: Discharge Assessment/Plan Patient received 1 dose of subcutaneous terbutaline with total cessation of her contractions Will place patient on bed and pelvic rest follow patient antepartum testing unit and for care Continue insulin as ordered and high blood pressure medications SHASHANK RATLIFF MD Apr 13, 2019 17:24
--- NOTE | 2019-04-13 18:38 | TRIAGE ---
OB Triage Datetime Report Generated by CPN: 04/13/2019 18:37 Datetime: 04/13/2019 17:22 Vaginal Exam Dilatation (cms): 0.0 Effacement (%): 10 Station: -4 Exam By: TM Datetime: 04/13/2019 15:30 Assessment Type: Triage Maternal Assessment Level of Consciousness: Keenly Alert, Responsive DTR's/Clonus: DTRs 2+; No Clonus Headache: Denies Blurred Vision: No Respiratory Effort: Unlabored; Regular Rhythm; Equal Expansion Breath Sounds, Left: Clear and Equal Breath Sounds, Right: Clear and Equal Nausea/Vomiting: Denies RUQ Epigastric Pain: Denies Lower Extremities Edema: Bilateral Lower Extremities Degree: 1+ Upper Extremities Edema: Bilateral Upper Extremities Degree: 1+ Facial Edema: None Fall Risk Assessment History of Falling: (0) No Secondary Diagnosis: (0) No Ambulatory Aid: (0) Bedrest/Nurse Assist IV Therapy: (0) No Gait: (0) Normal/Bedrest/Immobile Mental Status: (0) Oriented to Own Ability Fall Score: 0 Fall Risk Score Definition: No Risk: No action required Datetime: 04/13/2019 13:20 Time of Arrival: 04/13/2019 13:20 EGA: 34.2 Arrived By: Ambulatory Arrived From: Other Unit in Hospital Chief Complaint: Extended monitoring for Cat II tracing in NST Movement: Present Contractions: Denies/Absent Rupture of Membranes: Denies Vaginal Discharge: Denies Recent Sexual Intercouse: Denies Abdominal Trauma: Not Applicable Initial Plan: NST, VE, IV hydration, Terb x1 Datetime: 03/08/2019 14:41 EGA: 29.1 Datetime: 03/08/2019 14:34 EGA: 29.1 Datetime: 03/08/2019 14:32 EGA: 29.1 Datetime: 03/08/2019 14:21 EGA: 29.1 Datetime: 12/29/2018 14:13 EGA: 29.1 Datetime: 12/29/2018 07:39 Fall Score: 0 Fall Risk Score Definition: No Risk: No action required Datetime: 12/28/2018 07:39 Fall Score: 0 Fall Risk Score Definition: No Risk: No action required Datetime: 12/27/2018 07:35 Fall Score: 0 Fall Risk Score Definition: No Risk: No action required Datetime: 12/26/2018 21:14 Fall Score: 0 Fall Risk Score Definition: No Risk: No action required Datetime: 12/25/2018 20:20 Fall Score: 0 Fall Risk Score Definition: No Risk: No action required Datetime: 12/25/2018 07:30 Fall Score: 0 Fall Risk Score Definition: No Risk: No action required Datetime: 12/24/2018 20:17 Fall Score: 0 Fall Risk Score Definition: No Risk: No action required Datetime: 12/24/2018 07:30 Fall Score: 0 Fall Risk Score Definition: No Risk: No action required Datetime: 12/23/2018 19:19 Fall Score: 0 Fall Risk Score Definition: No Risk: No action required Datetime: 12/23/2018 15:44 Fall Score: 0 Fall Risk Score Definition: No Risk: No action required
== END 2019-04-13 18:30 | disposition home or self-care (01) ==
LOC: OBT 15:22 → L-D 15:23 → OBT 18:30
PROVIDERS: ATTEND Obstetrics & Gynecology
DX: O36.8330 Maternal care for abnormalities of the fetal heart rate or rhythm, third trimester, not applicable or unspecified (principal); Z3A.34 34 weeks gestation of pregnancy
CPT/HCPCS: 36415; 96360; 96372; J3105; J7120; Z7500; G0463

== ENCOUNTER 2019-04-14 16:24 | Inpatient (IN) | payer OTHER ==
[~2019-04-14] VITALS: Ht 165.1 cm; Wt 128.1 kg
[2019-04-14 17:33] VITALS: Ht 165.1 cm; Wt 128.1 kg
== END 2019-04-15 19:45 | disposition home or self-care (01) | DRG 833 ==
LOC: OBT 16:24 → L-D 16:25 → OBT 18:10 → L-D 18:10
PROVIDERS: ADMIT Obstetrics & Gynecology; ATTEND Obstetrics & Gynecology
DX: O13.3 Gestational [pregnancy-induced] hypertension without significant proteinuria, third trimester (principal); O24.419 Gestational diabetes mellitus in pregnancy, unspecified control
CPT/HCPCS: 80053; 81001; 82575; 82962; 84156; 84560; 85025; G0463; J0702; J1815; J7120

== ENCOUNTER 2019-04-26 16:58 | Outpatient (CLI) | payer OTHER ==
[~2019-04-26] VITALS: Ht 167.6 cm; Wt 128.4 kg
[~2019-04-26 16:58] MED LIST changes: +ACET325T33 PO; +IBUP800T48 PO; +INSU100V3 SC; +NPH,100V SC
[2019-04-26 17:28] VITALS: Ht 167.6 cm; Wt 128.4 kg
[2019-04-26 17:29] VITALS: BP 157/74; PULSE 90; RESP 19
== END 2019-04-26 20:30 | disposition home or self-care (01) ==
LOC: OBT 16:58 → L-D 16:59 → OBT 20:30
PROVIDERS: ATTEND Obstetrics & Gynecology
DX: O24.414 Gestational diabetes mellitus in pregnancy, insulin controlled (principal); O16.3 Unspecified maternal hypertension, third trimester; O09.513 Supervision of elderly primigravida, third trimester; Z3A.36 36 weeks gestation of pregnancy
CPT/HCPCS: G0463

== ENCOUNTER 2019-04-28 16:23 | Outpatient (CLI) | payer OTHER ==
[~2019-04-28] VITALS: Ht 167.6 cm; Wt 129.2 kg
[~2019-04-28 16:23] MED LIST changes: -ASPI-817 PO; -LEVEM
== END 2019-04-28 21:15 | disposition home or self-care (01) ==
LOC: OBT 16:23 → L-D 16:24 → OBT 21:15
PROVIDERS: ATTEND Obstetrics & Gynecology
DX: O36.8130 Decreased fetal movements, third trimester, not applicable or unspecified (principal); Z3A.36 36 weeks gestation of pregnancy
CPT/HCPCS: 76818; G0463

== ENCOUNTER 2019-04-30 08:00 | Observation (INO) | payer OTHER ==
[~2019-04-30] VITALS: Ht 167.6 cm; Wt 128.9 kg
[2019-04-30 08:34] VITALS: Ht 167.6 cm; Wt 128.9 kg
[2019-04-30] MEDS ORDERED: LACTATED RINGER'S 1,000 ML IV SCH (08:36)
[2019-04-30] MEDS ORDERED: LACTATED RINGER'S 1,000 ML IV PRN (08:36)
[2019-04-30] MEDS ORDERED: IBUPROFEN 600 MG TAB PO PRN (09:00)
[2019-04-30] MEDS ORDERED: BUTORPHANOL 2 MG INJ IV PRN ×2 (09:00)
[2019-04-30] MEDS ORDERED: AMPICILLIN 2 GM/NS (PMX) 100 ML IV ONE (09:00)
[2019-04-30] MEDS ORDERED: MISOPROSTOL 200 MCG TAB PR PRN (09:00)
[2019-04-30] MEDS ORDERED: CARBOPROST 250 MCG INJ IM PRN (09:00)
[2019-04-30] MEDS ORDERED: OXYTOCIN 30 UNITS/LR 500 ML IV PRN (09:00)
[2019-04-30] MEDS ORDERED: METHYLERGONOVINE 0.2 MG INJ IM PRN (09:00)
[2019-04-30] MEDS ORDERED: LIDOCAINE 1% (MPF) 30 ML INJ INJ PRN (09:00)
[2019-04-30] MEDS ORDERED: OXYTOCIN 30 UNITS/LR 500 ML IV SCH ×2 (09:00)
[2019-04-30 09:44] VITALS: BP 119/67; PULSE 96; RESP 18
[2019-04-30] MEDS ORDERED: AMPICILLIN 1 GM/NS (PMX) 50 ML IV SCH (13:00)
== END 2019-04-30 12:55 | disposition home or self-care (01) ==
LOC: INTOOBSV 08:09 → L-D 08:09
PROVIDERS: ADMIT Obstetrics & Gynecology; ATTEND Obstetrics & Gynecology
DX: O13.3 Gestational [pregnancy-induced] hypertension without significant proteinuria, third trimester (principal); O24.414 Gestational diabetes mellitus in pregnancy, insulin controlled; Z3A.36 36 weeks gestation of pregnancy
CPT/HCPCS: 76815; 76818; 80053; 84560; 85025; 85384; 85610; 85730; 86592; 86850; 86900; 86901; 87340; 99217; G0378; J7120

== ENCOUNTER 2019-05-03 07:50 | Inpatient (IN) | payer OTHER ==
[~2019-05-03] VITALS: Ht 167.6 cm; Wt 130.7 kg
[2019-05-03 08:17] VITALS: Ht 167.6 cm; Wt 130.7 kg
[2019-05-03 08:18] VITALS: BP 134/64; PULSE 91; RESP 18
[2019-05-03] MEDS ORDERED: OXYTOCIN 30 UNITS/LR 500 ML IV PRN (08:30)
[2019-05-03] MEDS ORDERED: METHYLERGONOVINE 0.2 MG INJ IM PRN (08:30)
[2019-05-03] MEDS ORDERED: AMPICILLIN 2 GM/NS (PMX) 100 ML IV ONE (08:30)
[2019-05-03] MEDS ORDERED: LIDOCAINE 1% (MPF) 30 ML INJ INJ PRN (08:30)
[2019-05-03] MEDS ORDERED: OXYCODONE/ASPIRIN (4.88/325) TAB PO PRN (08:30)
[2019-05-03] MEDS ORDERED: OXYTOCIN 30 UNITS/LR 500 ML IV SCH ×2 (08:30)
[2019-05-03] MEDS ORDERED: CARBOPROST 250 MCG INJ IM PRN (08:30)
[2019-05-03] MEDS ORDERED: IBUPROFEN 600 MG TAB PO PRN (08:30)
[2019-05-03] MEDS ORDERED: BUTORPHANOL 2 MG INJ IV PRN (08:30)
[2019-05-03] MEDS ORDERED: MISOPROSTOL 200 MCG TAB PR PRN (08:30)
[2019-05-03] MEDS: LACTATED RINGER'S 1,000 ML IV SCH ×2 (09:02→18:07)
[2019-05-03] MEDS: MISOPROSTOL 50 MCG CAPSULE PO SCH ×3 (09:42→17:59)
[2019-05-03] MEDS ORDERED: LABETALOL 200 MG TAB PO SCH (10:00)
[2019-05-03] MEDS: AMPICILLIN 1 GM/NS (PMX) 50 ML IV SCH ×3 (13:57→21:53)
[2019-05-03] MEDS ORDERED: GLUCOSE GEL 15 GRAM TUBE BUCCAL PRN (14:00)
[2019-05-03] MEDS ORDERED: DEXTROSE 50% 50 ML SYRINGE IV PRN ×2 (14:00)
[2019-05-03] MEDS ORDERED: GLUCAGON 1 MG INJ IM PRN (14:00)
[2019-05-03] MEDS ORDERED: GLUCOSE GEL 15 GRAM TUBE PO PRN ×2 (14:00)
[2019-05-03] MEDS ORDERED: INSULIN LISPRO 100 UNIT/ML VIAL SC ONE (17:05)
[2019-05-03] MEDS: LABETALOL 200 MG TAB PO SCH (17:59)
[2019-05-03] MEDS ORDERED: LACTATED RINGER'S 1,000 ML IV PRN (19:45)
[2019-05-03] MEDS ORDERED: NPH, HUMAN INSULIN ISOPHANE 3ML VIAL SC ONE (21:00)
[2019-05-04] MEDS: AMPICILLIN 1 GM/NS (PMX) 50 ML IV SCH ×6 (01:54→22:14)
[2019-05-04] MEDS: LACTATED RINGER'S 1,000 ML IV SCH ×2 (01:55→16:02)
[2019-05-04] MEDS: LABETALOL 200 MG TAB PO SCH ×2 (06:02→18:06)
[2019-05-04] MEDS ORDERED: INSULIN LISPRO 100 UNIT/ML VIAL SC ONE (07:05)
[2019-05-04] MEDS ORDERED: NPH, HUMAN INSULIN ISOPHANE 3ML VIAL SC ONE (07:05)
[2019-05-04] MEDS: MISOPROSTOL 50 MCG CAPSULE PO SCH ×3 (08:02→16:01)
[2019-05-04] MEDS ORDERED: NPH, HUMAN INSULIN ISOPHANE 3ML VIAL SC SCH (21:00)
[2019-05-04] MEDS ORDERED: OXYTOCIN 30 UNITS/LR 500 ML IV SCH (21:00)
[2019-05-04] MEDS ORDERED: FENTAnyl 2MCG/ML-ROPIV 0.2% 100 ML ONE (23:29)
[2019-05-04] MEDS ORDERED: NALOXONE (0.4 MG/ML) INJ IV PRN (23:30)
[2019-05-04] MEDS ORDERED: ONDANSETRON 4 MG INJ IV PRN (23:30)
[2019-05-04] MEDS ORDERED: DIPHENHYDRAMINE 50 MG INJ IV PRN (23:30)
[2019-05-05] MEDS: AMPICILLIN 1 GM/NS (PMX) 50 ML IV SCH ×6 (02:10→21:59)
[2019-05-05] MEDS: LACTATED RINGER'S 1,000 ML IV SCH ×2 (06:07→15:42)
[2019-05-05] MEDS: LABETALOL 200 MG TAB PO SCH ×2 (06:08→18:03)
[2019-05-05] MEDS: FENTAnyl 2MCG/ML-ROPIV 0.2% 100 ML BAG EPI SCH ×3 (06:50→21:23)
[2019-05-05] MEDS ORDERED: NPH, HUMAN INSULIN ISOPHANE 3ML VIAL SC SCH (07:05)
[2019-05-05] MEDS ORDERED: INSULIN LISPRO 100 UNIT/ML VIAL SC SCH ×2 (07:05→17:05)
[2019-05-06] VITALS (7 sets, daily range): BP systolic 138–170; BP diastolic 66–76; PULSE 86–102; RESP 18–20
[2019-05-06] MEDS ORDERED: MISOPROSTOL 200 MCG TAB PR PRN ×2 (01:00→07:00)
[2019-05-06] MEDS ORDERED: AZITHROMYCIN 500MG/NS (PMX) 250 ML IVPB ONE (01:00)
[2019-05-06] MEDS ORDERED: OXYTOCIN 30 UNITS/LR 500 ML IV PRN ×2 (01:00→07:00)
[2019-05-06] MEDS ORDERED: METHYLERGONOVINE 0.2 MG INJ IM PRN ×2 (01:00→07:00)
[2019-05-06] MEDS ORDERED: CARBOPROST 250 MCG INJ IM PRN ×2 (01:00→07:00)
[2019-05-06] MEDS ORDERED: CEFAZOLIN 3 GM in DEXTROSE 5% 100 ML IV ONE (01:00)
[2019-05-06] MEDS ORDERED: CHLOROPROCAINE 3% (MPF) 20 ML INJ ONE (02:03)
[2019-05-06] MEDS ORDERED: OXYTOCIN 30 UNITS/LR 500 ML BAG IV ONE (02:03)
[2019-05-06] MEDS ORDERED: PHENYLephrine (100 MCG/ML) 5ML SYG ONE (02:03)
[2019-05-06] MEDS ORDERED: ONDANSETRON 4 MG INJ ONE (02:03)
[2019-05-06] MEDS ORDERED: METOCLOPRAMIDE 10 MG INJ ONE (02:04)
[2019-05-06] MEDS ORDERED: ONDANSETRON 4 MG INJ IV PRN ×2 (02:30→06:30)
[2019-05-06] MEDS ORDERED: METOCLOPRAMIDE 10 MG INJ IV PRN (02:30)
[2019-05-06] MEDS ORDERED: HYDROmorphONE 1 MG/5 ML IV SYRINGE IV PRN ×3 (02:30)
[2019-05-06] MEDS ORDERED: ALBUTEROL 0.083% (NEB) 2.5 MG/3 ML AMP HHN PRN (02:30)
[2019-05-06] MEDS ORDERED: KETOROLAC 30 MG INJ IV PRN (02:30)
[2019-05-06] MEDS ORDERED: FENTAnyl 50 MCG/ML VIAL IV PRN ×3 (02:30)
[2019-05-06] MEDS ORDERED: DIPHENHYDRAMINE 50 MG INJ IV PRN ×2 (02:30→06:30)
[2019-05-06] MEDS ORDERED: ACETAMINOPHEN 500 MG TAB PO STA (02:58)
[2019-05-06] MEDS ORDERED: KETOROLAC 30 MG INJ IV STA (02:58)
[2019-05-06] MEDS: LABETALOL 200 MG TAB PO SCH ×3 (03:56→21:30)
[2019-05-06] MEDS ORDERED: NALOXONE (0.4 MG/ML) INJ IV PRN (06:30)
[2019-05-06] MEDS ORDERED: HYDROmorphONE 0.5 MG/0.5 ML SYG IV PRN (06:30)
[2019-05-06] MEDS ORDERED: LACTATED RINGER'S 1,000 ML IV SCH (06:45)
[2019-05-06] MEDS ORDERED: NA PHOSPHATE/BIPHOS 133 ML ENEMA PR PRN (07:00)
[2019-05-06] MEDS ORDERED: LANOLIN HPA 1 PKT TOP PRN (07:00)
[2019-05-06] MEDS ORDERED: NPH, HUMAN INSULIN ISOPHANE 3ML VIAL SC SCH ×2 (08:30→20:00)
[2019-05-06] MEDS: KETOROLAC 30 MG INJ IV PRN ×2 (08:55→21:53)
[2019-05-06] MEDS: SENNA/DOCUSATE NA (8.6MG/50MG) TAB PO SCH ×2 (09:18→21:47)
[2019-05-06] MEDS ORDERED: CEFAZOLIN 2 GM/50 ML (PMX) 50 ML IVPB SCH (10:00)
[2019-05-06] MEDS: HYDROmorphONE 0.5 MG/0.5 ML SYG IV PRN ×2 (10:16→20:07)
[2019-05-06] MEDS ORDERED: CLINDAMYCIN 300 MG CAP PO SCH (12:00)
[2019-05-06] MEDS ORDERED: ENOXAPARIN 40 MG/0.4 ML SYG SC SCH (15:00)
[2019-05-06] MEDS: ENOXAPARIN 40 MG/0.4 ML SYG SC SCH (16:28)
[2019-05-06] MEDS ORDERED: BISACODYL 10 MG SUPP PR ONE (20:00)
[2019-05-06] MEDS: GENTAMICIN 80 MG/NS (PMX) 50 ML IVPB SCH (20:30)
[2019-05-06] MEDS: CLINDAMYCIN 900 MG (PMX) 50 ML IVPB SCH (21:56)
[2019-05-06] MEDS: INSULIN REGULAR, HUMAN 100 UNIT/1 ML 3ML VIAL SC SCH (22:12)
[2019-05-06] MEDS: AMPICILLIN 2 GM/NS (PMX) 100 ML IVPB SCH (22:51)
[2019-05-07] VITALS: BP 129/58; PULSE 88; RESP 20
[2019-05-07] MEDS: GENTAMICIN 80 MG/NS (PMX) 50 ML IVPB SCH ×3 (01:33→17:16)
[2019-05-07] MEDS: LACTATED RINGER'S 1,000 ML IV SCH ×3 (01:35→22:46)
[2019-05-07] MEDS: OXYCODONE/ACETAMINOPHEN (5/325) TAB PO PRN (03:52)
[2019-05-07 04:00] VITALS: BP 141/81; PULSE 91; RESP 19
[2019-05-07] MEDS: IBUPROFEN 800 MG TAB PO SCH ×3 (05:33→22:05)
[2019-05-07] MEDS: AMPICILLIN 2 GM/NS (PMX) 100 ML IVPB SCH ×3 (05:33→19:18)
[2019-05-07] MEDS: CLINDAMYCIN 900 MG (PMX) 50 ML IVPB SCH ×5 (06:41→23:51)
[2019-05-07] MEDS: ACCU-CHEK XX SCH ×4 (07:30→20:05)
[2019-05-07 08:30] VITALS: BP 158/72; PULSE 80; RESP 19
[2019-05-07] MEDS: INSULIN REGULAR, HUMAN 100 UNIT/1 ML 3ML VIAL SC SCH ×2 (09:03→21:00)
[2019-05-07] MEDS: ENOXAPARIN 40 MG/0.4 ML SYG SC SCH (09:07)
[2019-05-07] MEDS: LABETALOL 200 MG TAB PO SCH ×2 (09:09→22:05)
[2019-05-07] MEDS: SENNA/DOCUSATE NA (8.6MG/50MG) TAB PO SCH ×2 (09:09→21:00)
[2019-05-07 12:50] VITALS: BP 151/73; PULSE 87; RESP 18
[2019-05-07] MEDS: HYDROCODONE/APAP (5/325) TAB PO PRN (15:44)
[2019-05-07 16:12] VITALS: BP 166/72; PULSE 92; RESP 18
[2019-05-07 20:00] VITALS: BP 154/69; PULSE 94; RESP 20
[2019-05-07] MEDS: NPH, HUMAN INSULIN ISOPHANE 3ML VIAL SC SCH (22:11)
[2019-05-08] MEDS: GENTAMICIN 80 MG/NS (PMX) 50 ML IVPB SCH ×2 (01:19→09:39)
[2019-05-08] MEDS: AMPICILLIN 2 GM/NS (PMX) 100 ML IVPB SCH ×3 (02:12→11:48)
[2019-05-08 04:00] VITALS: BP 141/74; PULSE 82; RESP 19
[2019-05-08] MEDS: HYDROCODONE/APAP (5/325) TAB PO PRN ×2 (05:24→17:02)
[2019-05-08] MEDS: IBUPROFEN 800 MG TAB PO SCH ×3 (06:21→21:53)
[2019-05-08] MEDS: CLINDAMYCIN 900 MG (PMX) 50 ML IVPB SCH ×2 (06:22→11:49)
[2019-05-08] MEDS: LACTATED RINGER'S 1,000 ML IV SCH ×2 (07:15→08:00)
[2019-05-08 08:30] VITALS: BP 140/64; PULSE 88; RESP 18
[2019-05-08] MEDS: ACCU-CHEK XX SCH ×3 (08:40→15:00)
[2019-05-08] MEDS: SENNA/DOCUSATE NA (8.6MG/50MG) TAB PO SCH ×2 (08:53→21:53)
[2019-05-08] MEDS: LABETALOL 200 MG TAB PO SCH ×2 (08:53→21:53)
[2019-05-08] MEDS: INSULIN REGULAR, HUMAN 100 UNIT/1 ML 3ML VIAL SC SCH (08:58)
[2019-05-08] MEDS: ENOXAPARIN 40 MG/0.4 ML SYG SC SCH (08:58)
[2019-05-08] MEDS: OXYCODONE/ACETAMINOPHEN (5/325) TAB PO PRN (09:14)
[2019-05-08 16:10] VITALS: BP 142/72; PULSE 86; RESP 18
[2019-05-08] MEDS: CLINDAMYCIN 300 MG CAP PO SCH (17:01)
[2019-05-08 20:50] VITALS: BP 126/72; PULSE 84; RESP 18
[2019-05-08] MEDS ORDERED: INSULIN REGULAR, HUMAN 100 UNIT/1 ML 3ML VIAL SC SCH (21:00)
[2019-05-08] MEDS: NPH, HUMAN INSULIN ISOPHANE 3ML VIAL SC SCH (21:43)
[2019-05-08] MEDS ORDERED: ACETAMINOPHEN 325 MG TAB PO PRN (22:00)
[2019-05-09] MEDS: CLINDAMYCIN 300 MG CAP PO SCH ×2 (00:43→05:48)
[2019-05-09] MEDS: HYDROCODONE/APAP (5/325) TAB PO PRN ×2 (02:36→08:57)
[2019-05-09 04:00] VITALS: BP 139/69; PULSE 80; RESP 18
[2019-05-09] MEDS: IBUPROFEN 800 MG TAB PO SCH (05:48)
[2019-05-09] MEDS ORDERED: INSULIN REGULAR, HUMAN 100 UNIT/1 ML 3ML VIAL SC SCH (07:35)
[2019-05-09] MEDS: ACCU-CHEK XX SCH ×3 (07:50→10:58)
[2019-05-09 08:00] VITALS: BP 142/95; PULSE 85; RESP 18
[2019-05-09] MEDS ORDERED: NPH, HUMAN INSULIN ISOPHANE 3ML VIAL SC SCH (08:00)
[2019-05-09] MEDS: ENOXAPARIN 40 MG/0.4 ML SYG SC SCH (08:43)
[2019-05-09] MEDS: LABETALOL 200 MG TAB PO SCH (08:56)
[2019-05-09] MEDS ORDERED: DIPHTH/TET/ACEL PERTUSS (ADULT) 0.5 ML VIAL IM* ONE (09:00)
[2019-05-09] MEDS: SENNA/DOCUSATE NA (8.6MG/50MG) TAB PO SCH (09:00)
[2019-05-09] MEDS ORDERED: MEASLES,MUMPS,RUBELLA VACCINE INJ SC* ONE (09:00)
== END 2019-05-09 12:25 | disposition home or self-care (01) | DRG 788 ==
LOC: L-D 07:50 → MS1 05-06 11:44 → PP1 05-06 21:04
PROVIDERS: ADMIT Obstetrics & Gynecology; ATTEND Obstetrics & Gynecology
PROC: 3E033VJ Introduction of Other Hormone into Peripheral Vein, Percutaneous Approach (ICD-10-PCS; 2019-05-06)
PROC: 10D00Z1 Extraction of Products of Conception, Low, Open Approach (ICD-10-PCS; principal; 2019-05-06 01:00)
DX: O13.4 Gestational [pregnancy-induced] hypertension without significant proteinuria, complicating childbirth (principal); O24.429 Gestational diabetes mellitus in childbirth, unspecified control; O62.1 Secondary uterine inertia; O99.214 Obesity complicating childbirth; E66.01 Morbid (severe) obesity due to excess calories; Z3A.37 37 weeks gestation of pregnancy; Z37.0 Single live birth
CPT/HCPCS: 62322; 80053; 82947; 82962; 84560; 85025; 85610; 85730; 86592; 86850; 86900; 86901; 90715; 99464; J2400; J0290; J0456; J0690; J1170; J1580; J1650; J1815; J1885; J2370; J2405; J2590; J2765; J3010; J7120